=== PATIENT | female | born 1990 | race Two or more races ===

== ENCOUNTER 2021-06-19 15:44 | Emergency (ER) | payer OTHER ==
[~2021-06-19] VITALS: Ht 157.5 cm; Wt 100.0 kg
[2021-06-19] MEDS ORDERED: KETOROLAC 60MG/2ML VIAL IM ONE (16:30)
[2021-06-19] MEDS ORDERED: NAPR-681 MT (18:17)
[2021-06-19 18:25] VITALS: BP 122/82
== END 2021-06-19 18:37 | disposition home or self-care (01) ==
LOC: ER 15:44
DX: M25.562 Pain in left knee (principal); Z91.81 History of falling
CPT/HCPCS: 29505; 73562; 96372; 99283; J1885

== ENCOUNTER 2021-08-08 13:42 | Emergency (ER) | payer OTHER ==
[~2021-08-08] VITALS: Ht 157.5 cm; Wt 93.0 kg
[~2021-08-08 13:42] MED LIST: NAPR-681 MT
[2021-08-08 13:55] VITALS: BP 143/89
== END 2021-08-08 16:41 | disposition left against medical advice (07) ==
LOC: ER 13:51
DX: R51.9 Headache, unspecified (principal); Z53.21 Procedure and treatment not carried out due to patient leaving prior to being seen by health care provider
CPT/HCPCS: 93005; 99283